=== PATIENT | female | born 1950 | race Caucasian/White ===

== ENCOUNTER → 2017-10-02 | Outpatient (CLI) | payer MEDICARE ==
--- NOTE | 2017-10-03 14:24 | Diagnostic Imaging Report ---
Bilateral screening mammogram 2D views with tomosynthesis. The current study was also evaluated with a Computer Aided Detection (CAD) system. INDICATION: Screening. No current complaints stated on the questionnaire. COMPARISON: 09/20/16. FINDINGS: The breasts are composed of heterogeneously dense parenchyma which may decrease mammographic sensitivity. Benign-appearing calcifications are seen. Allowing for technique and positional differences, no suspicious change is seen. IMPRESSION: Dense breasts with no definite change. ACR BI-RADS Category 2: Benign findings. Result letter will be mailed to the patient. Note: At least 10% of breast cancer is not imaged by mammography. Dictated by: Dictated on workstation # [id number]
== END ==
LOC: RAD 14:53
PROVIDERS: ATTEND Surgery
DX: Z12.31 Encounter for screening mammogram for malignant neoplasm of breast (principal)
CPT/HCPCS: 77067

== ENCOUNTER → 2018-10-06 | Outpatient (CLI) | payer MEDICARE ==
--- NOTE | 2018-10-08 09:02 | Diagnostic Imaging Report ---
EXAMINATION: Digital mammogram bilateral screening with 3D tomosynthesis and CAD. INDICATION: Screening. COMPARISON: This study is compared to the prior exams of 10/02/2017, 09/20/2016, and 08/18/2015. PERSONAL HISTORY: At this time, there are no current complaints. FINDINGS: The fibroglandular tissue in both breasts is heterogeneously dense. This does limit the sensitivity of this exam. Overall, there does not appear to have been any significant change when compared to the prior study. No primary or secondary sign of malignancy is noted. IMPRESSION: There is no radiographic evidence for malignancy. ACR BI-RADS Category 1: Negative. Result letter will be mailed to the patient. Note: At least 10% of breast cancer is not imaged by mammography. Dictated by: Dictated on workstation # [id number]
== END ==
LOC: RAD 08:41
PROVIDERS: ATTEND Surgery
DX: Z12.31 Encounter for screening mammogram for malignant neoplasm of breast (principal)
CPT/HCPCS: 77067

== ENCOUNTER → 2019-09-14 | Outpatient (CLI) | payer MEDICARE ==
--- NOTE | 2019-09-14 13:19 | Diagnostic Imaging Report ---
INDICATION: Fall. Foot pain. COMPARISON: None. FINDINGS: Three views of the left foot demonstrate no acute fracture or dislocation. There are no focal osseous lesions. There is no soft tissue swelling. Joint spaces are well maintained. No radiopaque foreign bodies are seen. IMPRESSION: No acute fractures or dislocations of the left foot. Dictated by: Dictated on workstation # [id number]
== END ==
LOC: RAD FS 11:29
PROVIDERS: ATTEND Family Medicine
DX: M79.672 Pain in left foot (principal); W19.XXXA Unspecified fall, initial encounter
CPT/HCPCS: 73630

== ENCOUNTER → 2019-12-07 | Outpatient (CLI) | payer MEDICARE ==
--- NOTE | 2019-12-07 10:34 | Diagnostic Imaging Report ---
EXAMINATION: Digital mammogram INDICATION: Bilateral screening This study was compared to the prior exams of 10/06/2018, 10/02/2017 and 09/20/2016. This study was scheduled as a screening exam. However during the course of the study the patient related to our mammography that she had a lump just beneath the skin high in the left axilla. According to the patient this had been there for a year. The fibroglandular tissue in both breasts is heterogeneously dense. This does limit the sensitivity of this exam. Overall, there does not appear to have been any significant change when compared to the prior study. There is no primary or secondary sign of malignancy noted. Additional views of the area of concern of the left breast and axilla were also performed. There is no discrete mass evident in this area. However if further study is desired, then ultrasound would be recommended. IMPRESSION: 1. There is no evidence of malignancy. 2. If clinical concern regarding a palpable abnormality in the left axilla persists, then ultrasound would be recommended for further study. ACR BI-RADS Category 1: Negative. Result letter will be mailed to the patient. Note: At least 10% of breast cancer is not imaged by mammography. Dictated by: Dictated on workstation # [id number]
== END ==
LOC: RAD 08:49
PROVIDERS: ATTEND Family Medicine
DX: Z12.31 Encounter for screening mammogram for malignant neoplasm of breast (principal)
CPT/HCPCS: 77067

== ENCOUNTER → 2019-12-11 | Outpatient (CLI) | payer MEDICARE ==
--- NOTE | 2019-12-11 17:36 | Diagnostic Imaging Report ---
Exam: Ultrasound of left upper extremity. Date: December 11, 2019. Indication: 69-year-old female, abnormality of the left axilla. Comparison: None. Findings: Targeted ultrasound of the left axilla was performed. At the area of focal patient concern, there is a superficially located oval hypoechoic mass which measures 7 x 5 x 7 mm in size without clearly demonstrated internal blood flow. Impression: Oval hypoechoic mass very superficially located at the area of focal concern in the left axilla measuring up to 7 x 5 x 7 mm in size which could relate to a nonspecific fluid collection or cystic mass. Correlation with dermatologic exam may be helpful and clinical correlation. If this is of uncertain exact etiology, sampling and/or biopsy may be needed for definitive diagnosis. Dictated by: Dictated on workstation # [id number]
== END ==
LOC: RAD 11:58
PROVIDERS: ATTEND Family Medicine
DX: R22.9 Localized swelling, mass and lump, unspecified (principal)
CPT/HCPCS: 76881

== ENCOUNTER → 2021-02-15 | Outpatient (CLI) | payer MEDICARE ==
--- NOTE | 2021-02-16 09:42 | Diagnostic Imaging Report ---
INDICATION: Routine screening. Comparison is made with prior mammogram 12/07/2019 and told 30 10/26/2017. 2-D and 3-D bilateral screening mammography was performed with CAD. Both breasts are heterogeneously dense, limiting the sensitivity of mammography. The parenchymal pattern is stable. There are scattered benign and parenchymal and vascular calcifications bilaterally. No spiculated mass or malignant appearing microcalcifications are seen. Axillae are unremarkable. IMPRESSION: BI-RADS Category 2 No mammographic features suspicious for malignancy are identified. ACR BI-RADS Category 2: Benign findings. Result letter will be mailed to the patient. Note: At least 10% of breast cancer is not imaged by mammography. Dictated by: Dictated on workstation # [id number]
== END ==
LOC: RAD 14:55
PROVIDERS: ATTEND Family Medicine
DX: Z12.31 Encounter for screening mammogram for malignant neoplasm of breast (principal)
CPT/HCPCS: 77063; 77067

== ENCOUNTER → 2022-02-16 | Outpatient (CLI) | payer MEDICARE ==
--- NOTE | 2022-02-16 13:59 | Diagnostic Imaging Report ---
Indication: Bilateral 3-D digital screening with CAD. CAD is utilized. The current study was also evaluated with a Computer Aided Detection (CAD) system. COMPARISON: 02/2021, 12/2019 and 09/2018 FINDINGS: Density 2. Benign type calcifications bilaterally are unchanged. Vascular calcifications chronic. No mass, spiculated lesion, architectural distortion or suspicious calcific densities. There has been no change. No findings of malignancy. IMPRESSION: BI-RADS Category 2 ACR BI-RADS Category 2: Benign findings. Result letter will be mailed to the patient. Note: At least 10% of breast cancer is not imaged by mammography. Dictated by: Dictated on workstation # [id number]
== END ==
LOC: RAD 10:30
PROVIDERS: ATTEND Family Medicine
DX: Z12.31 Encounter for screening mammogram for malignant neoplasm of breast (principal)
CPT/HCPCS: 77063; 77067

== ENCOUNTER 2022-04-29 10:22 | Emergency (ER) | payer MEDICARE ==
[~2022-04-29] VITALS: Ht 167.7 cm; Wt 89.8 kg
--- NOTE | 2022-04-29 11:27 | ED EENT ---
History of Present Illness General Chief Complaint: Eye Problems Stated Complaint: RT EYE REDNESS Nursing Triage Note: Patient presents to the ED with c/o right eye redness. States she was seen yesterday at urgent care for eye crusting, swelling, and redness and was prescribed Ciprofloxacin eye drops. States the swelling has improved but the redness has worsened. Source: patient, spouse History of Present Illness Date Seen by Provider: Apr 29, 2022 Time Seen by Provider: 10:48 Initial Comments 71-year-old female presenting with complaints of redness to her right arm. She states that she had crusting and drainage from her right eye with swelling to the eyelids yesterday. She was seen in urgent care and they started her on ciprofloxacin eyedrops. She reports that the swelling is improved but she felt like the redness got worse every time she used the eyedrops. She had also been using a rice pack and then she got 1 in the microwave to apply heat for her eye. She did have some redness of the lateral upper portion of her eye but now it is the entire eye that was red. She denies having any pain to the eye and has not affected her vision other than when she is tearing she has some blurry vision due to the increased tears. She was concerned that it could be a reaction to the antibiotic drops over something more is going on with her and urgent care told her that there was an eye doctor in the ER so she was referred to come here Timing/Duration: gradual Severity: moderate Location: eye (R) Prearrival Treatment: no prearrival treatment Associated Symptoms: No change in hearing, No cough, No drooling, No ear drainage, No facial pain/swelling, No fever, No malaise, No nasal congestion/drainage, No poor fluid intake, No poor solids intake, No sinus infection, No sore throat, No tooth pain, No voice change Allergies and Home Medications Allergies Coded Allergies: Penicillins (Verified Allergy, Unknown, 04/29/22) Sulfa (Sulfonamide Antibiotics) (Verified Allergy, Unknown, 04/29/22) potassium chloride (Verified Allergy, Unknown, 04/29/22) sulfamethoxazole (Verified Allergy, Unknown, 04/29/22) trimethoprim (Verified Allergy, Unknown, 04/29/22) Patient Home Medication List Home Medication List Reviewed: Yes Review of Systems Review of Systems Constitutional: No chills, No fever Eyes: See HPI; Denies Pain, Denies Photophobia, Denies Vision Changes Ears: No Symptoms Reported Nose: no symptoms reported Mouth: no symptoms reported Throat: no symptoms reported Respiratory: no symptoms reported Cardiovascular: no symptoms reported Gastrointestinal: no symptoms reported Musculoskeletal: no symptoms reported Past Avceqmi-Mdiqbb-Byzpyd Hx Patient Social History Tobacco Use?: No Substance use?: No Alcohol Use?: No Pt feels they are or have been: No Immunizations Up To Date First/Initial COVID19 Vaccinat: Yes Second COVID19 Vaccination Daniel: Yes COVID19 Vaccine Fabrication Manager: Moderna Past Medical History Surgery/Hospitalization HX: Cholecysectomy; Tonsils; breast biopsy; HTN Physical Exam Vital Signs Vital Signs - First Documented 04/29/22 10:30 Temp 36.2 Pulse 77 Resp 16 B/P (MAP) 159/89 (112) Pulse Ox 96 O2 Delivery Room Air Height, Weight, BMI Height: '" Weight: lbs. oz. kg; 31.00 BMI Method: General Appearance: WD/WN, no apparent distress Eyes: right eye conjunctival hemorrhage (Diffuse subconjunctival hemorrhage to the right eye); bilateral eye PERRL, bilateral eye EOMI Neurologic/Psychiatric: alert, oriented x 3 Progress/Results/Core Measures Results/Orders Vital Signs/I&O Blood Pressure Mean: 112 Progress Progress Note : Progress Note Counseled patient that the increased redness may be just from the heat of using the Rice bag. It could also be related to the antibiotic drops I have her hold those for now. Try just using washrag as hot as she can get it with water from the sink at home. Call Eye doctor to get formal exam in am unless she has change in vision or sudden pain in eye before tomorrow morning Departure Impression Primary Impression: Non-traumatic subconjunctival hemorrhage of right eye Additional Impression: Hordeolum internum right upper eyelid Disposition: 01 HOME, SELF-CARE Condition: Stable Departure-Patient Inst. Decision time for Depature: 11:21 Referrals: REMI CLARK MD (PCP) Primary Care Physician CAROLANN MURILLO OD Patient Instructions: Subconjunctival HemorrhageCedrick (DC) Add. Discharge Instructions: Follow up with Eye doctor of your choice tomorrow for more formal eye exam. Dr. Murillo is an option for a provider in [place]. Dr. Garcia is here in [place] and his number is [phone]. [facility] You could stop the Cipro antibiotic eye drop for now in case it was making any of the redness worse. Use a warm wash cloth as hot sa you can stand it from water from the sink and apply that for 4-5 minutes. Do this for 3 times a day. Use a No Tears formula soap such as Trever and Trever's No Tears Baby Shampoo to help clean the eyelids with a warm wash cloth and water. If you have sudden loss of vision or change in your vision, or pain in your eye then you need to see the eye doctor right away and would need to try calling them to see if they can get you in to be seen today or go to the ER in [place] to see about having the eye doctor see you. All discharge instructions reviewed with patient and/or family. Voiced understanding. ROSITA SHIELDS MD Apr 29, 2022 11:27
[2022-04-29 11:31] VITALS: BP 159/89
== END 2022-04-29 11:32 | disposition home or self-care (01) ==
LOC: EDUNIT# 10:22 → ER FS 10:23
DX: H11.31 Conjunctival hemorrhage, right eye (principal); H00.021 Hordeolum internum right upper eyelid
CPT/HCPCS: 99281

== ENCOUNTER → 2023-03-01 | Outpatient (CLI) | payer MEDICARE ==
--- NOTE | 2023-03-01 18:17 | Diagnostic Imaging Report ---
INDICATION: Routine screening. COMPARISON: Prior mammograms from 02/16/2022 and 02/15/2021. EXAMINATION: 2D and 3D bilateral screening mammography was performed with CAD. The current study was also evaluated with a Computer Aided Detection (CAD) system. FINDINGS: Both breasts are heterogeneously dense, limiting the sensitivity of mammography. There are scattered benign calcifications, bilaterally. No mass or malignant-appearing microcalcifications are seen. Axillae are unremarkable. IMPRESSION: No mammographic features suspicious for malignancy are identified. ACR BI-RADS Category 2: Benign findings. Result letter will be mailed to the patient. Note: At least 10% of breast cancer is not imaged by mammography. Dictated by: Dictated on workstation # [id number]
== END ==
LOC: RAD 09:14
PROVIDERS: ATTEND Family Medicine
DX: Z12.31 Encounter for screening mammogram for malignant neoplasm of breast (principal)
CPT/HCPCS: 77063; 77067